=== PATIENT | female | born 1975 | race Caucasian/White ===

== ENCOUNTER 2018-09-05 19:35 | Emergency (ER) | payer OTHER, MEDICAID ==
--- NOTE | 2018-09-05 21:12 | XRay Report ---
LUMBAR SPINE, 2 VIEWS INDICATION / CLINICAL INFORMATION: back pain. COMPARISON: None available. FINDINGS: Vertebral body heights and disc spaces are well preserved and appear unremarkable. Alignment is wade l. I do not see evidence for fracture or significant degenerative change. IMPRESSION: No significant osseous abnormality. Signer Name: Christnia Ny MD Signed: 09/05/2018 9:07 PM Workstation Name: [id number]
[2018-09-05] MEDS ORDERED: IBUPROFEN PO ONE (21:48)
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
[2018-09-06 00:17] VITALS: BP 122/68
== END 2018-09-06 00:17 | disposition home or self-care (01) ==
LOC: ED 19:35
DX: M54.5 Low back pain (principal); M25.511 Pain in right shoulder; Z90.49 Acquired absence of other specified parts of digestive tract; Z90.710 Acquired absence of both cervix and uterus; Z79.899 Other long term (current) drug therapy; Z91.040 Latex allergy status; Z91.013 Allergy to seafood; V89.2XXA Person injured in unspecified motor-vehicle accident, traffic, initial encounter; Y93.89 Activity, other specified; Y92.488 Other paved roadways as the place of occurrence of the external cause; Y99.8 Other external cause status
CPT/HCPCS: 72100; 72125; 72131; 99284